=== PATIENT | male | born 2000 | race Caucasian/White ===

== ENCOUNTER 2023-01-26 12:11 | Emergency (ER) | payer OTHER, SELFPAY ==
[2023-01-26 12:32] VITALS: BP 112/71; PULSE 70; RESP 16; TEMP 36.8; O2SAT 100
--- NOTE | 2023-01-26 12:34 | ED.EYEPROB ---
HPI - Eye Problem General Chief complaint: Eye Problems Stated complaint: Eye Problem History of Present Illness HPI Narrative: Patient presents with bilateral eyes matted shut this morning with drainage.Unable to check visual acuity patient wears contacts did not wears contacts to to this visit and does not have any glasses at home. visual acuity without corrective lenses 20/40 both eyes Related Data Allergies Allergy/AdvReac Type Severity Reaction Status Date / Time No Known Allergies Allergy Unverified 06/29/12 16:07 Review of Systems Review of Systems: CONSTITUTIONAL: Denies fever, chills, or sweats. EYES: Denies visual changes, redness, or discharge. ENT: Denies rhinorrhea, congestion, sore throat, or otalgia. CARDIOVASCULAR: Denies chest pain, palpitations, or edema. RESPIRATORY: Denies cough or dyspnea. GASTROINTESTINAL: Denies abdominal pain, nausea, vomiting, or diarrhea. GENITOURINARY: Denies dysuria or hematuria. SKIN: Denies rash or itching. MUSCULOSKELETAL: Denies back pain, joint pain, or myalgia. NEUROLOGIC: Denies headache, numbness, or weakness. PSYCHIATRIC: Denies anxiety or depression. PMFSH Comments At time of signature, agree with nursing past medical, surgical, social and family history. There is no relevant family history pertinent to the presenting complaint Exam Narrative: GENERAL: Well-appearing, well-nourished, and in no acute distress. HEAD: Normocephalic, atraumatic. EYES: PERRLA and EOMI. ENT: Nares clear, no rhinorrhea or epistaxis. Mucous membranes moist. NECK: Supple. CHEST: Clear to auscultation. No respiratory distress. HEART: Regular rate and rhythm. No murmur heard. Normal peripheral pulses. ABDOMEN: Soft, nontender, nondistended, normal active bowel sounds. EXTREMITIES: Normal range of motion. No edema. SKIN: Warm, dry, no rash. NEURO: No focal deficits. Alert and oriented x3. Walsh Coma Scale Eye Opening: Spontaneous 4 Walsh Coma Scale Motor: Obeys Commands 6 Walsh Coma Scale Verbal: Oriented 5 Benja Coma Scale Total 15 Eyes: Conjunctivae: conjunctival abnormality bilateral conjunctival injection localized Course Course Level of Care: Express Care Visit Vital Signs Vital signs: Vital Signs Temperature 36.8 C 01/26/23 12:32 Pulse Rate 70 01/26/23 12:32 Respiratory Rate 16 01/26/23 12:32 Blood Pressure 112/71 01/26/23 12:32 Pulse Oximetry 100 01/26/23 12:32 Temperature 36.8 C 01/26/23 12:32 Pulse Rate 70 01/26/23 12:32 Respiratory Rate 16 01/26/23 12:32 Blood Pressure 112/71 01/26/23 12:32 Pulse Oximetry 100 01/26/23 12:32 Discharge Plan Discharge Clinical Impression: Bacterial conjunctivitis Patient Disposition: Home, Self-Care Condition: Stable Instructions: Antibiotic Form, Conjunctivitis (ED) Additional Instructions: Conjunctivitis is spread by bcsl-[id number] contact or by touching a contaminated surface. You can use artificial tears, cold and warm compresses-use, different compress for each eye, and increase hygiene such as hand-washing. Do not wear contacts for 1 week, if applicable. Do not return for 24 hours to daycare, school, workplace for 24 hours after first antibiotic dose. Change bedding. follow up with eye doctor in 24-48 hours -If you have any worsening of symptoms or any other concerns please go to the ED immediately. Prescriptions: New ciprofloxacin HCl 0.3 % drops 2 drop EACH EYE Q4H PRN (Reason: abrasion) 5 Days Qty: 5 0RF Rx Instructions: 2 drps; Follow-up/Referrals: UNKNOWN,DOCTOR [Primary Care Provider] - Stand Alone Forms: Work/School Release IP
== END 2023-01-26 12:41 | disposition home or self-care (01) ==
PROVIDERS: Emergency Provider Nurse Practitioner Family
DX: H10.9 Unspecified conjunctivitis (principal)
CPT/HCPCS: 99213; G0463

== ENCOUNTER 2024-12-08 13:46 | Emergency (ER) | payer OTHER, SELFPAY ==
--- OUTSIDE RECORDS SUMMARY | 2024-12-08 13:49 | XMS_ITS | Clinical Summary ---
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 Name Role Phone Unavailable Primary Care Provider Unavailabl e Social History Tobacco Use Types Packs/Day Years Used Date Smoking Tobacco: Never Assessed Sex and Gender Information Value Date Recorded Sex Assigned at Not on file Legal Sex Male 8:54 AM CDT Gender Identity Not on file Sexual Orientation Not on file Plan of Treatment Health Maintenance Due Date Last Done Comments HPV VACCINES (1 - Male 3-dos e series) 2016 DTAP/TDAP/TD VACCINES (7 - T d or Tdap) 10/13/2022 10/13/2012, 10/17/2006, 02/04/2003, Additional history exists INFLUENZA VACCINE (#1) 2024 01/13/2015, 2011 HEPATITIS B VACCINES Completed 10/17/2006, 2001, 2001
--- OUTSIDE RECORDS SUMMARY | 2024-12-08 13:49 | XMS_ITS | Clinical Summary ---
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 Name Role Phone Jericho Minor MD Primary Care Provider [phone] Allergies No known active allergies Medications No known medications Active Problems Problem Noted Date Diagnosed Date Health care maintenance 03/23/2013 Overview (06/19/2016): Health care maintenance History of asthma 03/23/2013 Myopia 03/23/2013 Overview (08/18/2018): Resolved Problems Problem Noted Date Diagnosed Date Resolved Date Tic 03/23/2013 08/18/2018 Overview (06/19/2016): Tic History of gastrointestinal disease 03/23/2013 08/18/2018 Overview (06/19/2016): Hx of gastroesophageal reflux (GERD) Speech delay 03/23/2013 08/18/2018 Overview (06/21/2016): Speech delay Encounters Date Type Department Care Team Description 11/12/2024 9:00 AM CDT Office Visit [facility] Sports Medicine and Primary Care at [address] [place] [address] Kaden Bermudez DO Right wrist pain (Primary Dx); Ganglion cyst of dorsum of right wrist 10/27/2024 Results Follow-Up [facility] Sports [facility] and Primary Care at [address] [phone] Kaden Bermudez DO MRI Wrist Arthrogram Right W Contrast 10/26/2024 1:10 PM CDT - 10/26/2024 11:59 PM CDT Hospital Encounter [facility] [address] [place] [address] Chronic pain of right wrist Discharge Disposition: Discharge to home or self care 10/26/2024 1:10 PM CDT - 10/26/2024 11:59 PM CDT Hospital Encounter [facility] [address] [place] [address] Rafael Camp Chronic pain of right wrist Discharge Disposition: Discharge to home or self care 10/26/2024 Orders Only [facility] Sports Medicine and Primary Care at [address] [phone] Kaden Bermudez DO Chronic pain of right wrist (Primary Dx); Right wrist pain 10/05/2024 Telephone [facility] Orthopedics and Sports Medicine [address] [phone] Kaden Bermudez DO MRI 09/23/2024 11:30 AM CDT Office Visit [facility] Sports Medicine and Primary Care at [address] [phone] Kaden Bermudez DO Right wrist pain (Primary Dx); Chronic pain of right wrist 09/23/2024 11:15 AM CDT Ancillary Procedure [facility] Imaging at [address] [phone] Right wrist pain 09/23/2024 Orders Only [facility] Sports Medicine and Primary Care at [address] [phone] Kaden Bermudez DO 09/23/2024 Orders Only [facility] Sports Medicine and Primary Care at [address] [phone] Kaden Bermudez DO Chronic pain of right wrist (Primary Dx) from Last 3 Months Immunizations Immunization Administration Dates Next Due DTaP 5 Pertussis 10/17/2006, 3,05/06/2002,03/15/2002, 01/12/2002 Hep A, Pediatric 10/13/2012,10/17/2009 Hep B, Adolescent or Pediatric 10/17/2006,2001,2001 Hib (HbOC) 02/04/2003,05/06/2002,03/15/2002 ,01/12/2002 IPV 10/17/2006,02/04/2003,03/15/2002 ,01/12/2002 Influenza, Split 03/23/2013 Influenza, Trivalent, IM (MDV) 01/13/2015,2011 MMR 11/05/2002 MMRV 10/17/2006 Meningococcal MCV4P (Menactra) 04/07/2018,2015 Pneumococcal Conjugate 7-Valent 02/04/2003,05/06,03/15/2002,01/12/2002 Tdap 10/13/2012 Varicella 11/05/2002 Medical History Medical History Date Comments [place] 2001 6-0 preg GERD & PTL Family History Medical History Relation Name Comments Neuropathy Maternal Grandfather Agent [place] Heart murmur Maternal Grandmother Anemia Mother Asthma Mother Nephritis Mother's Sister PSGN as chil d Coronary artery disease Other 1 Sudden Other 2 Allergies Other 3 Cat and seasona l Diabetes Paternal Grandfather Heart failure Paternal Grandfather Hyperlipidemia Paternal Grandfather Hypertension Paternal Grandfather Relation Name Status Comments Father Alive Maternal Grandfather Maternal Grandmother Mother Alive Mother's Sister Other 1 Other 2 Other 3 Paternal Grandfather Social History Tobacco Use Types Packs/Day Years Used Date Smoking Tobacco: Never Smokeless Tobacco: Never Tobacco Cessation:Counseling Given: Not Answered PHQ-2 Answer Date Recorded PHQ-2 Total Score (If total score is 3 or more points, staff should administer the PHQ-9) 0 08/07/2020 Sex and Gender Information Value Date Recorded Sex Assigned at Not on file 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 Gender Identity Not on file Sexual Orientation Not on file Obstetrics History Last Filed Vital Signs Vital Sign Reading Time Taken Comments Blood Pressure 110/79 11/12/2024 9:04 AM CDT Pulse 81 11/12/2024 9:04 AM CDT Temperature 36.7 C (98.1 F) 08/07/2020 11:09 AM CDT Respiratory Rate 16 08/07/2020 11:0 9 AM CDT Oxygen Saturation 97% 08/07/2020 11: 09 AM CDT Inhaled Oxygen Concentration - - Weight 69.7 kg (153 lb 11.2 oz) 11/12/2024 9:04 AM CDT Height 167.6 cm (5' 6) 11/12/2024 9:04 AM CDT Body Mass Index 24.81 11/12/2024 9:04 AM CDT Plan of Treatment Health Maintenance Due Date Last Done Comments Hepatitis C Screening 2001 HPV Vaccines (1 - Male 3-dos e series) 2016 Meningococcal B Vaccine (1 o f 2 - Standard) 2017 Regular Well Visit/Exam 18-64 11/04/2019 Depression Screening 08/07/2021 08/07/2020 DTaP/Tdap/Td Vaccine (7 - Td or Tdap) 10/13/2022 10/13/2012, 10/17/2006, 02/04/2003, Additional history exists Influenza Vaccine (#1) 2024 5, 03/23/2013, 03/16/2012 Pneumococcal vaccine <65 Completed 003, 05/06/2002, 03/15/2002, Additional history exists Hepatitis B Screening Completed 10/17/2006 , 2001, 2001 Varicella Vaccines Completed 10/17/2006, 11/05/2002 Procedures Procedure Name Priority Date/Time Associated Diagnosis Comments MRI WRIST ARTHROGRAM RIGHT W CONTRAST Schedule Routine, Read Routine (OP Routine) 10/26/2024 2:50 PM CDT Chronic pain of right wrist INJECTION WRIST RIGHT ARTHRO ONLY Schedule Routine, Read Routine (OP Routine) 10/26/2024 2:17 PM CDT Chronic pain of right wrist XR WRIST RIGHT 3 OR MORE VIEWS Routine 09/23/2024 11:14 AM CDT Right wrist pain from Last 3 Months Results * MRI Wrist Arthrogram Right W Contrast (10/26/2024 2:50 PM CDT) Anatomical Region Laterality Modality Upper Extremities Right Magnetic Reson ance 10/27/2024 6:33 AM CDT Narrative 10/27/2024 6:43 AM CDT EXAM DESCRIPTION: MRI WRIST ARTHROGRAM RIGHT W CONTRAST REASON FOR STUDY: Patient reports general right wrist pain x 1 year. 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 Details of the arthrogram injection are dictated separately. COMPARISON: 10/26/2024 FINDINGS: On this arthrographic evaluation, the scapholunate and lunotriquetral ligaments, and the triangular fibrocartilage complex appear intact. No evidence of contrast in the midcarpal row or distal radioulnar joint. The extrinsic wrist ligaments are intact. There are no fractures. Mild marrow edema involves the palmar aspect of the pisiform. Ulnar negative variance is present. The cartilage is normal. No loose bodies are identified. The 1st through 6th extensor compartment tendons are normal in course and morphology. The flexor tendons appear normal. The carpal tunnel is normal. The median nerve is normal in course and morphology. Guyon's canal appears normal. Likely 11 x 11 mm volar radial wrist ganglion communicates with the joint space. IMPRESSION: 1. Intact right wrist intrinsic and extrinsic ligaments, and triangular fibrocartilage complex. 2. Mild marrow edema involving the palmar aspect of the pisiform. This is nonspecific, but may represent a contusion versus stress reaction. 3. Likely 11 x 11 mm volar radial right wrist ganglion communicating with the joint space. THIS IS AN ELECTRONICALLY VERIFIED FINAL REPORT 10/27/2024 6:43 AM - Electronically signed by Kaden Sanders M.D. MF: [email or web address] Report ID: [id number] Reading Location: [id number] Procedure Note Kaden Sanders MD - 10/27/2024 EXAM DESCRIPTION: MRI WRIST ARTHROGRAM RIGHT W CONTRAST REASON FOR STUDY: Patient reports general right wrist pain x 1 year. 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 Details of the arthrogram injection are dictated separately. COMPARISON: 10/26/2024 FINDINGS: On this arthrographic evaluation, the scapholunate and lunotriquetral ligaments, and the triangular fibrocartilage complex appear intact. No evidence of contrast in the midcarpal row or distal radioulnar joint. The extrinsic wrist ligaments are intact. There are no fractures. Mild marrow edema involves the palmar aspect ofthe pisiform. Ulnar negative variance is present. The cartilage is normal.No loose bodies are identified. The 1st through 6th extensor compartment tendons are normal in course and morphology. The flexor tendons appear normal. The carpal tunnel is normal.The median nerve is normal in course and morphology. Guyon's canal appearsnormal. Likely 11 x 11 mm volar radial wrist ganglion communicates with the joint space. IMPRESSION: 1. Intact right wrist intrinsic and extrinsic ligaments, and triangular fibrocartilage complex. 2. Mild marrow edema involving the palmar aspect of the pisiform. Thisis nonspecific, but may represent a contusion versus stress reaction. 3. Likely 11 x 11 mm volar radial right wrist ganglion communicatingwith the joint space. THIS IS AN ELECTRONICALLY VERIFIED FINAL REPORT 10/27/2024 6:43 AM - Electronically signed by Kaden Sanders M.D. MF: [email or web address] Report ID: [id number] Reading Location: [id number] Kaden Bermudez DO IMG MRI PROCEDURES Fin al Result * Injection Wrist Right Arthro Only (10/26/2024 2:17 PM CDT) Anatomical Region Laterality Modality Wrist Right Radio Fluoroscop y 10/26/2024 2:50 PM CDT Narrative 10/26/2024 2:53 PM CDT EXAM DESCRIPTION: INJECTION WRIST RIGHT ARTHRO ONLY HISTORY: Chronic right wrist pain. Patient denies shoulder pain. Right wrist arthrogram Fl time 15.4 seconds Dose 0.4675 Fluoroscopy Dose: Dose: 0.4675 09/23/2024 COMPARISON: 09/23/2024 PROCEDURE: Risks, benefits, and alternatives of the procedure were explained to the patient and informed consent was obtained. All questions answered. The area was prepped and draped in usual sterile fashion. 1% lidocaine was utilized for local anesthetic. A 25-gauge needle was advanced into the right radiocarpal joint under fluoroscopic guidance. 3 mL of a solution composed of 5 mL Omnipaque 240, 10 mL sodium chloride, 5 mL 0.2% ropivacaine , and 0.1 mL gadolinium was injected into the joint space under fluoroscopy. Fluoroscopic images were obtained to document the procedure. There were no immediate complications. The patient tolerated the procedure well and was transferred to the MRI department for further imaging. MRI results are reported separately. IMPRESSION: Technically successful right wrist injection for MR arthrogram. THIS IS AN ELECTRONICALLY VERIFIED FINAL REPORT 10/26/2024 2:53 PM - Electronically signed by Bethel Hampton M.D. NS: NS Report ID: [id number] Reading Location: [id number] Procedure Note Bethel Hampton MD - 10/26/2024 EXAM DESCRIPTION: INJECTION WRIST RIGHT ARTHRO ONLY HISTORY: Chronic right wrist pain. Patient denies shoulder pain. Right wrist arthrogram Fl time 15.4 seconds Dose 0.4675 Fluoroscopy Dose: Dose: 0.4675 09/23/2024 COMPARISON: 09/23/2024 PROCEDURE: Risks, benefits, and alternatives of the procedure wereexplained to the patient and informed consent was obtained. All questions answered. The area was prepped and draped in usual sterile fashion. 1% lidocainewas utilized for local anesthetic. A 25-gauge needle was advanced into the right radiocarpal joint under fluoroscopic guidance. 3 mL of asolution composed of 5 mL Omnipaque 240, 10 mL sodium chloride, 5 mL 0.2%ropivacaine , and 0.1 mL gadolinium was injected into the joint space underfluoroscopy. Fluoroscopic images were obtained to document the procedure. There wereno immediate complications. The patient tolerated the procedure well and was transferred to the MRI department for further imaging. MRI results are reported separately. IMPRESSION: Technically successful right wrist injection for MR arthrogram. THIS IS AN ELECTRONICALLY VERIFIED FINAL REPORT 10/26/2024 2:53 PM - Electronically signed by Bethel Hampton M.D. NS: NS Report ID: [id number] Reading Location: [id number] Kaden Bermudez DO IMG XR PROCEDURES Henna l Result * XR Wrist Right 3 or More Views (09/23/2024 11:14 AM CDT) Anatomical Region Laterality Modality Upper Extremities, Wrist Right Digital Radiography 09/23/2024 1:37 PM CDT Narrative 09/23/2024 1:39 PM CDT EXAM DESCRIPTION: XR WRIST RIGHT 3 OR MORE VIEWS REASON FOR STUDY: pain Patient reports general right wrist pain x 1 year TECHNIQUE: 3 radiographic view(s) of the right wrist . COMPARISON: None FINDINGS: BONES/JOINTS: There is no acute fracture, malalignment or osseous abnormality. The joint spaces are normal. SOFT TISSUES: Within normal limits. IMPRESSION: No acute osseous abnormality. THIS IS AN ELECTRONICALLY VERIFIED FINAL REPORT 09/23/2024 1:39 PM - Electronically signed by Artie HAYS T: Report ID: [id number] Reading Location: [id number] Procedure Note Artie Bryant MD - 09/23/2024 EXAM DESCRIPTION: XR WRIST RIGHT 3 OR MORE VIEWS REASON FOR STUDY: pain Patient reports general right wrist pain x 1 year TECHNIQUE: 3 radiographic view(s) of the right wrist . COMPARISON: None FINDINGS: BONES/JOINTS: There is no acute fracture, malalignment orosseous abnormality. The joint spaces are normal. SOFT TISSUES: Within normal limits. IMPRESSION: No acute osseous abnormality. 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
[2024-12-08 13:51] VITALS: BP 125/64; PULSE 71; RESP 16; TEMP 36.6; O2SAT 100
--- NOTE | 2024-12-08 14:00 | ED.EYEPROB ---
HPI - Eye Problem General Chief complaint: Eye Problems Stated complaint: Eye Problem Time Seen by Provider: 12/08/24 14:00 Source: patient Mode of arrival: ambulatory Limitations: no limitations History of Present Illness HPI Narrative: 24 yo M presents with redness, irritation and itching to L eye. Wears contacts. Still has contacts in because he did not want to drive here in eyeglasses. No vision changes. states just some simple pink eye. all systems reviewed and negative except as noted above. Related Data Allergies Allergy/AdvReac Type Severity Reaction Status Date / Time No Known Allergies Allergy Verified 12/08/24 13:56 PMFSH Comments At time of signature, agree with nursing past medical, surgical, social and family history. There is no relevant family history pertinent to the presenting complaint. Exam Narrative: GENERAL: This is a well-nourished, well-developed patient, in no apparent distress. HEAD: normocephalic, atraumatic. EYES: PERRL. Sclera and conjunctiva left eye is erythematous with purulent drainage. Right eye normal. Extraocular motions intact Vision is grossly intact. EARS: External ears normal NOSE: External nose normal NECK: Neck supple, non-tender without lymphadenopathy, masses or thyromegaly. CARDIOVASCULAR: Regular rate and rhythm without murmurs, gallops, or rubs. RESPIRATORY: Clear to auscultation. Breath sounds equal bilaterally. No wheezes, rales, or rhonchi. SKIN: warm, Dry, intact with no suspicious lesions or rash, good texture and turgor. NEURO: awake, alert, and oriented to person, place and time. There were no obvious focal neurologic abnormalities. EXTREMITIES: No joint tenderness, effusion, or edema noted. Course Course Level of Care: Express Care Visit Vital Signs Vital signs: Vital Signs Temperature 36.6 C 12/08/24 13:51 Pulse Rate 71 12/08/24 13:51 Respiratory Rate 16 12/08/24 13:51 Blood Pressure 125/64 12/08/24 13:51 Pulse Oximetry 100 12/08/24 13:51 Oxygen Delivery Room Air 12/08/24 13:51 Temperature 36.6 C 12/08/24 13:51 Pulse Rate 71 12/08/24 13:51 Respiratory Rate 16 12/08/24 13:51 Blood Pressure 125/64 12/08/24 13:51 Pulse Oximetry 100 12/08/24 13:51 Oxygen Delivery Room Air 12/08/24 13:51 reviewed MDM - Eye Problem MDM Narrative Medical decision making narrative: will treat left bacterial conjunctivitis with ofloxacin eyedrops. Recommend follow up with senior telecommunications specialist if not improving. Educated patient to throw away current pair of contacts and not start a new pair until symptoms resolved. Differential Diagnosis Differential diagnosis: Likely corneal abrasion, conjunctivitis and corneal ulcer Discharge Plan Discharge Clinical Impression: Acute bacterial conjunctivitis of left eye Patient Disposition: Home Condition: Stable Instructions: Antibiotic Form, Conjunctivitis (ED) Additional Instructions: place antibiotic eyedrops as prescribed. Wash hands before and after placing eyedrops. Throat away current pair of contacts and do not replace with a new pair of contacts until all symptoms have resolved. See your senior telecommunications specialist if not improving. Patient Language: Venezuelan Prescriptions: New ofloxacin 0.3 % drops See Rx Instructions .ROUTE .COMPLEX Qty: 10 0RF Rx Instructions: put 1-2 drps into affected eye(s) every 2-4 h x 2 days, then 1-2 drps 4 times/day days 3-7 Follow-up/Referrals: Lara,Kaden Barrow DO [Primary Care Provider, Unknown] Time of Disposition: 14:03
== END 2024-12-08 14:12 | disposition home or self-care (01) ==
PROVIDERS: Emergency Provider Nurse Practitioner Family; PCP Family Medicine Sports Medicine
DX: H10.32 Unspecified acute conjunctivitis, left eye (principal)
CPT/HCPCS: 99213; G0463